=== PATIENT | male | born 1960 | race Caucasian/White ===

== ENCOUNTER 2017-03-15 01:51 | Emergency (ER) | payer OTHER ==
[2017-03-15 02:29] VITALS: TEMP 97.5; BMI 35.5
[2017-03-15] MEDS ORDERED: ALBUTEROL SO4 2.5/IPRATROPIUM 0.5 INH SOL 3 ML VIAL.NEB. NEB STA ×2 (02:40→03:24)
--- NOTE | 2017-03-15 02:40 | PDOC ---
History of Present Illness - General History Source: Patient Exam Limitations: No Limitations - History of Present Illness Initial Comments: 03/15/17 02:46 The patient is a 57 year old male with significant past medical history of hypertension, diabetes and diverticulitis who presents to the ED for 1 day of dry cough, SOB and wheezing. Patient reports he has seasonal allergies that normally triggers his bronchial spasm. States he has a nebulizer at home and gave himself a couple of treatments with minimal to no relief. The patient denies fever, chills, diaphoresis, chest pain, and palpitations. The patient denies abdominal pain, nausea, vomiting, and diarrhea. Allergies: NKDA Social History: No alcohol, tobacco, or drug use reported. Past Surgical History: appendectomy, hernia repair PCP: Dr. Cliff Fonseca <Cee Erwin - Last Filed: 03/15/17 03:23> - General History Source: Patient <NaheedNick valdes - Last Filed: 03/15/17 03:58> - General Chief Complaint: Respiratory Stated Complaint: DIFFICULTY BREATHING Time Seen by Provider: 03/15/17 02:34 Past History <Cee Erwin - Last Filed: 03/15/17 03:23> - Past Medical History Diabetes: Yes GI Disorders: Yes (diverticulosis) HTN: Yes Suicide Attempt (Hx): No - Surgical History Abdominal Surgery: Yes (hernia repair) Appendectomy: Yes - Immunization History Td Vaccination: Yes TDAP Vaccination: Yes Immunization Up to Date: Yes - Psycho/Social/Smoking Cessation Hx Anxiety: No Suicidal Ideation: No Smoking Status: No Smoking History: Never smoked Have you smoked in the past 12 months: No Number of Cigarettes Smoked Daily: 0 If you are a former smoker, when did you quit?: 2004 Information on smoking cessation initiated: No Hx Alcohol Use: No Drug/Substance Use Hx: No Substance Use Type: None <Nick See - Last Filed: 03/15/17 03:58> - Past Medical History Allergies/Adverse Reactions: Allergies Allergy/AdvReac Type Severity Reaction Status Date / Time No Known Allergies Allergy Verified 03/15/17 02:26 Home Medications: Ambulatory Orders Amlodipine Besylate [Norvasc -] 10 mg PO DAILY 08/28/14 Losartan Potassium [Cozaar -] 100 mg PO DAILY 08/28/14 Metformin HCl [Glucophage] 500 mg PO BIDAC 08/28/14 Albuterol 0.083% Nebulizer Shanon [Ventolin 0.083% Nebulizer Soln -] 1 neb NEB Q6H #30 vial 03/15/17 Albuterol Sulfate Inhaler - [Ventolin HFA Inhaler -] 2 inh IH Q6H #1 inh Prednisone [Deltasone] 20 mg PO DAILY #4 tablet 03/15/17 Review of Systems - Review of Systems Able to Perform ROS?: Yes Comments:: 03/15/17 02:46 CONSTITUTIONAL: Absent: fever, no chills, no fatigue EYES: Absent: visual changes ENT: Absent: ear pain, no sore throat CARDIOVASCULAR: Absent: chest pain, no palpitations RESPIRATORY: +cough, SOB, wheezing GI: Absent: abdominal pain, no nausea, no vomiting, no constipation, no diarrhea GENITOURINARY: Absent: dysuria, no frequency, no hematuria MUSCULOSKELETAL: Absent: back pain, no arthralgia, no myalgia SKIN: Absent: rash NEURO: Absent: headache <Cee Erwin - Last Filed: 03/15/17 03:23> *Physical Exam - Vital Signs Last Vital Signs Temp Pulse Resp BP Pulse Ox 97.5 F L 75 14 136/88 98 03/15/17 02:26 03/15/17 02:26 03/15/17 02:26 03/15/17 02:26 03/15/17 02:26 - Physical Exam Comments: 03/15/17 02:46 GENERAL: Well-appearing, well-nourished. No apparent distress. HEENT: Normocephalic, atraumatic. PERRL, EOM intact. CARDIOVASCULAR: Normal S1, S2. Regular rate and rhythm. PULMONARY: No respiratory distress. Bilateral coarse wheezing. No conversational dyspnea. No retractions. ABDOMEN: Soft, non-distended, non-tender. EXTREMITIES: Normal ROM in all four extremities. No gross deformities. SKIN: Warm, dry. No rash NEUROLOGICAL: No focal neurological deficits. <Cee Erwin - Last Filed: 03/15/17 03:23> - Vital Signs Last Vital Signs Temp Pulse Resp BP Pulse Ox 97.5 F L 75 14 136/88 98 03/15/17 02:26 03/15/17 02:26 03/15/17 02:26 03/15/17 02:26 03/15/17 02:26 <Nick See - Last Filed: 03/15/17 03:58> Heart Score/ECG Review - ECG Impressions Comment:: 03/15/17 03:24 NSR @72bpm Normal ECG <Cee Erwin - Last Filed: 03/15/17 03:23> Medical Decision Making - Medical Decision Making 03/15/17 02:42 Dr. See: The scribe's documentation has been prepared under my direction and personally reviewed by me in its entirery. I confirm that the note above accurately reflects all work, treatment, procedures, and medical decision making performed by me. 03/15/17 03:57 Pt feels better after nebs and prednisone. Pt to follow up with his pcp <Nick See - Last Filed: 03/15/17 03:58> *DC/Admit/Observation/Transfer - Attestations Scribe Attestion: 03/15/17 02:46 Documentation prepared by Cee Erwin, acting as ophthalmic medical technician for Nick See MD/DO. <Cee Erwin - Last Filed: 03/15/17 03:23> - Discharge Dispostion Admit: No <Nick See - Last Filed: 03/15/17 03:58> Diagnosis at time of Disposition: Cough Asthma Qualifiers: Asthma severity: unspecified severity Asthma complication type: uncomplicated Qualified Code(s): J45.909 - Unspecified asthma, uncomplicated - Discharge Dispostion Disposition: HOME Condition at time of disposition: Stable - Prescriptions Prescriptions: Prednisone [Deltasone] 20 mg PO DAILY #4 tablet Albuterol 0.083% Nebulizer Shanon [Ventolin 0.083% Nebulizer Soln -] 1 neb NEB Q6H #30 vial Albuterol Sulfate Inhaler - [Ventolin HFA Inhaler -] 2 inh IH Q6H #1 inh - Referrals Referrals: Cliff Fonseca MD [Primary Care Provider] - Perez Stone MD [Staff Physician] - - Patient Instructions Printed Discharge Instructions: DI for Cough -- Adult, DI for Asthma -- Adult
[2017-03-15] MEDS ORDERED: predniSONE 20 MG TABLET (UD) PO ONE (02:41)
[2017-03-15] MEDS ORDERED: predniSONE 20 MG TABLET (UD) ONE (02:48)
[2017-03-15] MEDS ORDERED: diphenhydrAMINE HCL 25 MG CAPSULE (FP) PO ONE ×2 (03:52→04:13)
[2017-03-15 04:17] VITALS: BP 138/90; PULSE 72
--- NOTE | 2017-03-15 17:24 | EKG ---
Test Reason : Blood Pressure : / mmHG Vent. Rate : 072 BPM Atrial Rate : 072 BPM P-R Int : 158 ms QRS Dur : 102 ms QT Int : 404 ms P-R-T Axes : 057 -05 018 degrees QTc Int : 442 ms NORMAL SINUS RHYTHM NORMAL ECG WHEN COMPARED WITH ECG OF 28-AUG-2014 09:22, NO SIGNIFICANT CHANGE WAS FOUND Confirmed by GOSIA LOVING MD ([id number]) on 03/15/2017 5:24:04 PM Referred By: Confirmed By:GOSIA LOVING MD
== END 2017-03-15 04:17 | disposition home or self-care (01) ==
LOC: JER 01:51
PROC: 3E0F7GC Introduction of Other Therapeutic Substance into Respiratory Tract, Via Natural or Artificial Opening (ICD-10-PCS; principal; 2017-03-15)
PROC: 3E0F7GC Introduction of Other Therapeutic Substance into Respiratory Tract, Via Natural or Artificial Opening (ICD-10-PCS; 2017-03-15)
DX: J45.909 Unspecified asthma, uncomplicated (principal)
CPT/HCPCS: 93005; 93010; 99282-25

== ENCOUNTER 2017-04-02 07:54 | Day surgery (SDC) | payer OTHER ==
[2017-03-30 15:03] VITALS: BMI 38.0
[2017-04-02] MEDS ORDERED: LIDOCAINE HCL/PF 2% SDV 5ML VIAL ONE (09:08)
[2017-04-02] MEDS ORDERED: PROPOFOL 20 ML ONE ×2 (09:09)
[2017-04-02 10:06] VITALS: TEMP 97.7
[2017-04-02 10:57] VITALS: BP 117/65; PULSE 67
== END 2017-04-02 10:57 | disposition home or self-care (01) ==
LOC: JASU-ENDO 07:54
PROVIDERS: ATTEND Internal Medicine Gastroenterology
PROC: 0DBN8ZX Excision of Sigmoid Colon, Via Natural or Artificial Opening Endoscopic, Diagnostic (ICD-10-PCS; principal; 2017-04-02 09:00)
DX: Z12.11 Encounter for screening for malignant neoplasm of colon (principal); K57.30 Diverticulosis of large intestine without perforation or abscess without bleeding; D12.5 Benign neoplasm of sigmoid colon; K64.8 Other hemorrhoids
CPT/HCPCS: 88305-TC

== ENCOUNTER 2019-09-03 04:39 | Inpatient (IN) | payer OTHER ==
[2019-09-03] MEDS ORDERED: TAMSULOSIN HCL 0.4 MG CAP ONE (06:18)
[2019-09-03] MEDS ORDERED: CEFAZOLIN 1 GM/D5W 1 GM/50 ML BAG ONE (06:18)
[2019-09-03 06:51] VITALS: BMI 34.9
[2019-09-03] MEDS ORDERED: BUPIVACAINE HCL/PF 0.5% (5 MG/ML) 30 ML VIAL IJ ONE (07:10)
[2019-09-03] MEDS ORDERED: MIDAZOLAM HCL 2 MG/2 ML SINGLE DOSE VIAL ONE ×2 (07:20)
[2019-09-03] MEDS ORDERED: KETAMINE HCL 200 MG/20 ML VIAL ONE (07:20)
[2019-09-03] MEDS ORDERED: PROPOFOL 20 ML ONE ×2 (07:20→08:41)
[2019-09-03] MEDS ORDERED: SUCCINYLCHOLINE CHLORIDE 200 MG/10 ML SYRINGE ONE (07:20)
[2019-09-03] MEDS ORDERED: LIDOCAINE HCL/PF 2% SDV 5ML VIAL ONE (07:22)
[2019-09-03] MEDS ORDERED: KETOROLAC TROMETHAMINE 30 MG/1 ML VIAL ONE (07:22)
[2019-09-03] MEDS ORDERED: ceFAZolin SODIUM 1 GM VIAL ONE (07:22)
[2019-09-03] MEDS ORDERED: DEXAMETHASONE SOD PHOSPHATE 4 MG/1 ML VIAL ONE (07:22)
[2019-09-03] MEDS ORDERED: SODIUM CHLORIDE 0.9% P/F 10 ML VIAL IJ ONE (07:22)
[2019-09-03] MEDS ORDERED: ONDANSETRON 4 MG/2 ML VIAL ONE (07:22)
[2019-09-03] MEDS ORDERED: VECURONIUM BROMIDE 10 MG VIAL ONE (07:24)
[2019-09-03] MEDS ORDERED: DEXAMETHASONE SOD PHOSPHATE/PF 10 MG/ML SDV ONE (07:27)
[2019-09-03] MEDS ORDERED: ceFAZolin 2 GRAM PREMIX BAG IVPB ONE (08:15)
[2019-09-03] MEDS ORDERED: GLYCOPYRROLATE 0.2 MG/1 ML VIAL ONE (08:36)
[2019-09-03] MEDS ORDERED: NEOSTIGMINE METHYLSULFATE 0.5 MG/1 ML - 10 ML MDV ONE (08:37)
[2019-09-03] MEDS ORDERED: EPHEDRINE SULFATE/0.9% NACL/PF 50 MG/10 ML SYRINGE NR ONE (08:47)
[2019-09-03] MEDS ORDERED: oxyCODONE HCL 5 MG TABLET PO PRN ×2 (09:21→13:51)
[2019-09-03] MEDS ORDERED: ONDANSETRON 4 MG/2 ML VIAL IVPUSH PRN ×2 (09:21→13:49)
[2019-09-03] MEDS ORDERED: LACTATED RINGERS SOLUTION 1,000 ML IV SCH (09:30)
[2019-09-03] MEDS ORDERED: DEXTROSE 5%-0.45% SALINE 1,000 ML IV SCH (09:35)
[2019-09-03] MEDS ORDERED: ACETAMINOPHEN 1000 MG/100 ML VIAL (NON FORMULARY) IVPB ONE (09:35)
[2019-09-03] MEDS ORDERED: morphine SULFATE 4 MG/ML VIAL IVPB PRN (09:35)
[2019-09-03] MEDS ORDERED: KETOROLAC TROMETHAMINE 15 MG/ML VIAL IVPB PRN (09:35)
[2019-09-03] MEDS ORDERED: ACETAMINOPHEN INJECTION 100 ML IVPB ONE (09:57)
[2019-09-03] MEDS ORDERED: INSULIN (NOVOLOG) ASPART 100 UNITS/ML 10ML VIAL ONE (13:07)
[2019-09-03] MEDS ORDERED: MORPHINE SULFATE 8 MG/ML VIAL IVPB PRN (13:45)
[2019-09-03] MEDS ORDERED: ALBUTEROL SO4 8 GM HFA INHALER IH PRN (13:54)
[2019-09-03] MEDS ORDERED: INSULIN SLIDING SCALE (NOVOLOG) 1 VIAL SQ SCH (14:15)
[2019-09-03] MEDS: FAMOTIDINE 20 MG/50 ML IVPB 20 MG/50 ML MG IVPB SCH ×2 (14:46→21:53)
[2019-09-03] MEDS: D5-1/2NS+20 MEQ KCL - 20 MEQ/1,000 ML INFUS.BAG IV SCH (15:46)
[2019-09-03] MEDS: LOSARTAN POTASSIUM 50 MG TABLET (FP) PO SCH (16:25)
[2019-09-03] MEDS: amLODIPine BESYLATE 10 MG TABLET (FP) PO SCH (16:25)
[2019-09-03] MEDS: INSULIN SLIDING SCALE (NOVOLOG) 1 VIAL SQ SCH ×2 (16:32→21:51)
[2019-09-03] MEDS: oxyCODONE HCL 5 MG TABLET PO PRN ×2 (16:36→20:40)
--- NOTE | 2019-09-03 16:48 | OP ---
DATE OF OPERATION: 09/03/2019 PREOPERATIVE DIAGNOSIS: Complex, chronically incarcerated ventral hernia. POSTOPERATIVE DIAGNOSIS: Complex, chronically incarcerated ventral hernia. PROCEDURE: Bilateral component separation repair of complex chronically incarcerated ventral hernia with mesh/partial omentectomy. OPERATING SURGEON: Hakan Cash MD ETL DATABASE DEVELOPER: Olvin Fang MD ANESTHESIA: Howie Carpio MD (general) HISTORY: Indications, alternatives, possible complications reviewed. Consent obtained. DESCRIPTION OF PROCEDURE: With the patient in the supine position and after general anesthesia, the abdomen was prepped and draped in the usual sterile fashion using chlorhexidine. Midline incision was made beginning in the upper midline and extending to a distance shortly past the umbilicus inferiorly. The incision was deepened into the subcutaneous space. Multiple incarcerated components of the ventral hernia were identified along the upper midline as well as at the central ring of the abdomen. The bridge between these defects was incised and the abdominal cavity entered. All of the defects were reduced, and the undersurface of the abdominal wall swept clean. There was an incarcerated portion of omentum within the central ring of the abdomen, which required amputation. Portion of omentum and hernia sac were sent as specimen. First directing our attention to the right side, the right retrorectus space was developed sharply moving in the inferior, lateral, and superior directions ultimately arriving at the junction of the oblique and transversus musculature. The oblique musculature was from the underlying transversus muscle. The retrorectus space dissection was then carried out into this interspace and the dissection was carried out further inferiorly, laterally, and superiorly. Now directing our attention to the left side, the left retrorectus space was developed. This dissection was carried out toward the left inferior, lateral, and superior directions arriving at the junction of the left oblique and transversus musculature. The left oblique musculature was from the underlying transversus muscle. The left retrorectus space dissection was then carried out into this interspace and the dissection continued inferiorly, laterally, and superiorly. Ultimately, the posterior midline was recreating using 3-0 Maxon approximating the posterior sheath. Composite mesh was then made at the table using a piece of 15 x 15 ProGrip, which was sutured to a piece of 10 x 12 OviTex mesh. This was done using circumferential, interrupted 3-0 Vicryl sutures. The mesh was then soaked and placed in the retrorectus space with the OviTex side down and the ProGrip side up. Using an AbsorbaTacker, the mesh was tacked circumferentially to the overlying rectus musculature securing the mesh along its entire periphery. The wound was irrigated, the irrigant retrieved. Adequate hemostasis ensured. The anterior rectus sheath was then closed using interrupted and continuous No. 1 PDS suture material leaving the composite mesh entirely in the retrorectus space. The subcutaneous tissues were then irrigated and adequate hemostasis ensured. Given the large subcutaneous space, Shaun-Rucker drain was placed in the subcutaneous space and exited through a separate stab wound at the level of the patient's right lower quadrant where the drain was tacked to the skin with 2-0 silk suture material. Ultimately, the skin edges were approximated using metallic clips. NEEDLE, SPONGE, INSTRUMENT COUNT: Correct. ESTIMATED BLOOD LOSS: Minimal. SPECIMENS: Portion of omentum and hernia sac. DRAINS: One J-P. Patient tolerated the procedure. Procedure was terminated. Elliott [id number] MTDD
[2019-09-04] MEDS: D5-1/2NS+20 MEQ KCL - 20 MEQ/1,000 ML INFUS.BAG IV SCH (02:45)
[2019-09-04] MEDS: oxyCODONE HCL 5 MG TABLET PO PRN ×2 (02:53→09:13)
[2019-09-04] MEDS: INSULIN SLIDING SCALE (NOVOLOG) 1 VIAL SQ SCH ×2 (06:36→12:07)
[2019-09-04] MEDS ORDERED: INSULIN (NOVOLOG) ASPART 100 UNITS/ML 10ML VIAL ONE (06:37)
[2019-09-04] MEDS ORDERED: PT OWN MED DRAWER 7, Y5N ONE (09:07)
[2019-09-04] MEDS: amLODIPine BESYLATE 10 MG TABLET (FP) PO SCH (09:12)
[2019-09-04] MEDS: LOSARTAN POTASSIUM 50 MG TABLET (FP) PO SCH (09:12)
[2019-09-04] MEDS: FAMOTIDINE 20 MG/50 ML IVPB 20 MG/50 ML MG IVPB SCH (09:44)
[2019-09-04] MEDS ORDERED: ENOXAPARIN NA (PORCINE) 40 MG/0.4 ML DISP.SYRIN SQ SCH (10:30)
[2019-09-04 10:33] VITALS: BP 150/77; PULSE 77; TEMP 98
--- NOTE | 2019-09-08 17:38 | PATH ---
Surgical Pathology Report Patient Name: THIAGO SAHU [facility]. Rec. #: [id number] /Age/Gender: 1960 (Age: 59) / M Account: [id number] Location: [address] [place] [address] Taken: 09/03/2019 Received: 09/03/2019 Reported: 09/08/2019 Physicians: Hakan Cash M.D. Specimen(s) Received PORTION OF OMENTUM AND HERNIA SAC Clinical History Ventral hernia with obstruction Final Diagnosis HERNIA SAC AND PORTION OF OMENTUM, OPEN BILATERAL COMPONENT SEPARATION, REPAIR OF INCARCERATED VENTRAL HERNIA WITH MESH: HERNIA SAC AND BENIGN FIBROADIPOSE TISSUE. Electronically Signed Rosalba De La Torre M.D. Gross Description Received in formalin labeled "portion of omentum and hernia sac," is a 6.5 x 3.5 x 2.0 cm jacinto-romero portion of fibromembranous tissue with attached fat, consistent with a hernia sac. [employer]el Plant Operator sections are submitted in one cassette. /09/04/2019 [facility]09/04/2019
== END 2019-09-04 14:40 | disposition home or self-care (01) | DRG 355 ==
LOC: JASUSAT 04:39 → JSAMEDAYSX 09:48 → J6S 14:29
PROVIDERS: ADMIT Surgery; ATTEND Surgery
PROC: 0DBU0ZZ Excision of Omentum, Open Approach (ICD-10-PCS; 2019-09-03)
PROC: 0WUF0JZ Supplement Abdominal Wall with Synthetic Substitute, Open Approach (ICD-10-PCS; principal; 2019-09-03 08:00)
DX: K43.6 Other and unspecified ventral hernia with obstruction, without gangrene (principal); E11.9 Type 2 diabetes mellitus without complications; I10 Essential (primary) hypertension
CPT/HCPCS: 82962; 88302-TC; 94010; 94760; J0131